=== PATIENT | male | born 1965 | race Caucasian/White ===

== ENCOUNTER 2017-07-23 11:58 | Inpatient (IN) | payer OTHER ==
[~2017-07-23] VITALS: Ht 162.6 cm; Wt 116.8 kg
[2017-07-23 13:17] LABS: BASO % 0.1 %; BASO ABS # 0.01 K/uL (0-0.2); COMPLETE YES; EOS % 0.1 %; HEMATOCRIT 37.2 % (42-52); IG% 0.3 %; LYMPH % 6.8 %; LYMPH ABS # 0.83 K/uL (1.2-3.4); MEAN CELL VOLUME 87.3 fL (80-100); MEAN CORPUSCULAR HEMOGLOBIN 30.5 pg (25-34); MEAN CORPUSCULAR HGB CONC 34.9 g/dl (32-36); MEAN PLATELET VOLUME 9.7 fL (7.4-10.4); MONO % 6.8 %; NEUT % 85.9 %; PLATELET COUNT 125 K/uL (130-400); RED BLOOD COUNT 4.26 M/uL (4.7-6.1); WHITE BLOOD COUNT 12.15 K/uL (4.8-10.8)
[2017-07-23 13:26] LABS: BUN/CREATININE RATIO 12.6 (10-20); POTASSIUM 3.8 mmol/L (3.5-5.1)
[2017-07-23 13:34] LABS: C-REACTIVE PROTEIN 22.7 mg/dl (0-0.29)
--- NOTE | 2017-07-23 13:36 | DIAGNOSTIC IMAGING REPORT ---
LEFT TIBIA/FIBULAR 2 VIEWS HISTORY: L leg pain, erythema, fever COMPARISON: None. FINDINGS: There is no fracture or dislocation. Small ossific density adjacent to the lateral malleolus is consistent with an old avulsion injury. Mild soft tissue swelling throughout the lower leg. No radiopaque foreign bodies. IMPRESSION: Mild soft tissue swelling throughout the lower leg. No underlying bony abnormality. Electronically signed by: Zachary Talavera M.D. 07/23/2017 1:34 PM Dictated Date/Time: 07/23/2017 1:18 PM
[2017-07-23] MEDS ORDERED: VANCOMYCIN 1GM/270ML NSS IV STA (14:15)
[2017-07-23] MEDS ORDERED: SODIUM CHLORIDE 0.9% 1000ML 1,000 ML IV STA (14:15)
[2017-07-23 14:16] LABS: LYME DISEASE AB IGG NEG (NEG); LYME DISEASE AB IGM NEG (NEG)
--- NOTE | 2017-07-23 14:55 | DIAGNOSTIC IMAGING REPORT ---
ULTRASOUND LEFT VENOUS DOPP LOWER EXT UNILAT CLINICAL HISTORY: Left leg swelling and erythema. COMPARISON STUDY: No previous studies for comparison. FINDINGS: Real-time and color flow Doppler imaging were performed. Flow was seen within the femoral, popliteal and calf veins with no intraluminal thrombus demonstrated. The saphenous vein is patent. There are multiple prominent left inguinal lymph nodes the largest of which measures 30 x 24 x 18 mm IMPRESSION: 1. No evidence of left lower extremity DVT 2. Prominent left inguinal lymph nodes, likely reactive. Clinical follow-up is advocated Electronically signed by: Austin Aranda M.D. 07/23/2017 2:54 PM Dictated Date/Time: 07/23/2017 2:53 PM
[2017-07-23] MEDS ORDERED: GLUCOSE 40% GEL 15 GM TUBE PO PRN (15:00)
[2017-07-23] MEDS ORDERED: MAGNESIUM HYDROXIDE SUSP 30 ML UDC PO PRN (15:00)
[2017-07-23] MEDS ORDERED: ACETAMINOPHEN 325 MG TAB PO PRN (15:00)
[2017-07-23] MEDS ORDERED: POLYETHYLENE (MIRALAX) 17 GM PACK PO PRN (15:00)
[2017-07-23] MEDS ORDERED: GLUCOSE 10 TABS/TUBE PO PRN (15:00)
[2017-07-23] MEDS ORDERED: DEXTROSE 50% 50 ML SYR IV PRN (15:00)
[2017-07-23] MEDS ORDERED: GLUCAGON FOR INJ 1 MG VIAL SQ PRN (15:00)
[2017-07-23] MEDS ORDERED: ALUMINUM/MAGNESIUM/SIMETH (MAALOX MAX) 30 ML UDC PO PRN (15:00)
[2017-07-23] MEDS ORDERED: ONDANSETRON INJ 2 MG/ML 2 ML VIAL IV PRN (15:00)
[2017-07-23 15:12] VITALS: BP 136/88; PULSE 74; TEMP 37.4; O2SAT 98; BMI 44.2
--- NOTE | 2017-07-23 15:15 | EMERGENCY ROOM VISIT NOTE ---
History First contact with patient: 12:38 Chief Complaint: INFECTION Stated Complaint: CELLULITIS, VERY SORE, INFLAMMED LEG Nursing Triage Summary: pt has redness in left lower leg notice sunday. thinks cellulitis. has been on long distance travel from [place] on sunday History of Present Illness The patient is a 52 year old male who presents to the Emergency Room with complaints of left leg swelling, redness and fever. The patient reports that he was in [place] last week for a conference. When he was returning Sunday evening, he reports sudden onset of chills, nausea and vomiting. The patient reports that he did notice some mild left leg discomfort on Sunday, but did not really look at the leg until Sunday when his noticed that the leg was red. The patient denies any blunt trauma to the leg. He denies any recent tick bites or history of Lyme disease. The patient denies any prior history of vasculitis, cellulitis or lower extremity wounds. Patient denies any new topical products or risk of poison kendy exposure. The patient reports that his fever last night was 102.8F. He was seen at [facility] and referred here for further evaluation. The patient has not taken any medicine for pain or fever, and rates his discomfort a 5 out of 10. The patient reports that the swelling, redness and pain is worsening, now having discomfort in his left thigh as well. The patient denies any prior history of diabetes. Review of Systems HEENT: Denies dizziness, visual problems, hearing loss, tinnitus. Denies difficulty swallowing or oral lesions. PULMONARY: Denies cough, shortness of breath, sputum production or hemoptysis. CARDIOVASCULAR: Denies chest pain, palpitations, dyspnea on exertion, orthopnea or peripheral edema. GASTROINTESTINAL: Denies diarrhea, constipation, nausea, vomiting, or abdominal pain. GENITOURINARY: Denies dysuria, frequency, urgency or nocturia. NEUROLOGIC: Denies history of epilepsy, CVA, TIA or chronic headaches. MUSCULOSKELETAL: Denies history of joint tenderness/swelling. SKIN: Denies rashes or lesions. PSYCHIATRIC: Denies history of depression or mental illness. ENDOCRINE: Denies history of diabetes or thyroid disorders. Past Medical/Surgical History Medical Problems: (1) Bronchitis (2) Cellulitis of left leg (3) Pneumonia Surgical Problems: (1) No history of previous surgery Family History FH: cancer FH: diabetes mellitus FH: hypertension FH: kidney disease Social History Smoking Status: Never Smoker Smokeless Tobacco Use: Yes Alcohol Use: none Marital Status: Housing Status: lives with family Occupation Status: unemployed Current/Historical Medications No Active Prescriptions or Reported Meds Physical Exam Vital Signs Date Time Temp Pulse Resp B/P (MAP) Pulse Ox O2 Delivery O2 Flow Rate FiO2 07/23/17 14:59 96 18 136/88 94 Room Air 07/23/17 13:43 92 22 133/89 94 Room Air 07/23/17 12:00 37.4 99 18 178/111 94 Physical Exam CONSTITUTIONAL: Healthy and well nourished. Alert and oriented X 3 with positive affect. She does not appear acutely ill or toxic. HEENT: Normocephalic, atraumatic. Pupils equal, round and reactive. No scleral icterus or conjunctival injection/pallor. NECK: Full active range of motion without discomfort. RESPIRATORY: Clear to auscultation bilaterally with no wheezing, crackles, rhonchi or stridor. CARDIOVASCULAR: Regular rate and rhythm with no murmurs, rubs or gallops. GASTROINTESTINAL: Bowel sounds present in all quadrants. Soft and nontender to palpation. MUSCULOSKELETAL: Examination of the left leg shows notable erythema and edema. The erythema appears patchy and is raised. No vesicles, pustules or desquamation. It is noted that the erythema is sharply demarcated where the patient's sock crosses the ankle region. The erythema does slightly sahra with pressure. He has some erythema extending onto the anterior and medial thigh region. Negative logroll. LYMPHATICS: No left inguinal adenopathy noted. INTEGUMENTARY: No rash or other significant dermatologic conditions noted. NEUROLOGIC: No focal neurologic deficits noted. Left foot and toes are sensory intact. Medical Decision & Procedures ER Provider Diagnostic Interpretation: My interpretation of left leg x-rays does not show any radiopaque foreign bodies , fractures or evidence for osteomyelitis. Radiologist report is as follows: LEFT TIBIA/FIBULAR 2 VIEWS HISTORY: L leg pain, erythema, fever COMPARISON: None. FINDINGS: There is no fracture or dislocation. Small ossific density adjacent to the lateral malleolus is consistent with an old avulsion injury. Mild soft tissue swelling throughout the lower leg. No radiopaque foreign bodies. IMPRESSION: Mild soft tissue swelling throughout the lower leg. No underlying bony abnormality. Venous ultrasound of the left lower extremity does not show any underlying deep vein thrombosis. Left inguinal lymphadenopathy is noted. Radiologist report is as follows: ULTRASOUND LEFT VENOUS DOPP LOWER EXT UNILAT CLINICAL HISTORY: Left leg swelling and erythema. COMPARISON STUDY: No previous studies for comparison. FINDINGS: Real-time and color flow Doppler imaging were performed. Flow was seen within the femoral, popliteal and calf veins with no intraluminal thrombus demonstrated. The saphenous vein is patent. There are multiple prominent left inguinal lymph nodes the largest of which measures 30 x 24 x 18 mm IMPRESSION: 1. No evidence of left lower extremity DVT 2. Prominent left inguinal lymph nodes, likely reactive. Clinical follow-up is advocated Laboratory Results 07/23/17 12:50 Red Blood Count 4.26, Mean Corpuscular Volume 87.3, Mean Corpuscular Hemoglobin 30.5, Mean Corpuscular Hemoglobin Concent 34.9, Mean Platelet Volume 9.7, Neutrophils (%) (Auto) 85.9, Lymphocytes (%) (Auto) 6.8, Monocytes (%) (Auto) 6.8, Eosinophils (%) (Auto) 0.1, Basophils (%) (Auto) 0.1, Neutrophils # (Auto) 10.43, Lymphocytes # (Auto) 0.83, Monocytes # (Auto) 0.83, Eosinophils # (Auto) 0.01, Basophils # (Auto) 0.01 07/23/17 12:50 Test 07/23/17 12:50 07/23/17 13:48 07/23/17 14:57 White Blood Count 12.15 K/uL (4.8-10.8) Red Blood Count 4.26 M/uL (4.7-6.1) Hemoglobin 13.0 g/dL (14.0-18.0) Hematocrit 37.2 % (42-52) Mean Corpuscular Volume 87.3 fL (80-100) Mean Corpuscular Hemoglobin 30.5 pg (25-34) Mean Corpuscular Hemoglobin Concent 34.9 g/dl (32-36) Platelet Count 125 K/uL (130-400) Mean Platelet Volume 9.7 fL (7.4-10.4) Neutrophils (%) (Auto) 85.9 % Lymphocytes (%) (Auto) 6.8 % Monocytes (%) (Auto) 6.8 % Eosinophils (%) (Auto) 0.1 % Basophils (%) (Auto) 0.1 % Neutrophils # (Auto) 10.43 K/uL (1.4-6.5) Lymphocytes # (Auto) 0.83 K/uL (1.2-3.4) Monocytes # (Auto) 0.83 K/uL (0.11-0.59) Eosinophils # (Auto) 0.01 K/uL (0-0.5) Basophils # (Auto) 0.01 K/uL (0-0.2) RDW Standard Deviation 43.5 fL (36.4-46.3) RDW Coefficient of Variation 13.7 % (11.5-14.5) Immature Granulocyte % (Auto) 0.3 % Immature Granulocyte # (Auto) 0.04 K/uL (0.00-0.02) Erythrocyte Sedimentation Rate 30 mm/hr (0-14) Anion Gap 7.0 mmol/L (3-11) Est Creatinine Clear Calc Drug Dose 99.4 ml/min Estimated GFR () 99.2 Estimated GFR (Non- 85.5 BUN/Creatinine Ratio 12.6 (10-20) Calcium Level 9.0 mg/dl (8.5-10.1) C-Reactive Protein 22.70 mg/dl (0-0.29) Lyme Disease IgG Antibody NEG (NEG) Lyme Disease IgM Antibody NEG (NEG) Bedside Lactic Acid Venous 1.65 mmol/L (0.90-1.70) The above labs were reviewed. Blood cultures 2 were collected and are pending. Bedside lactic acid was mild elevated at 1.65. CBC is elevated with left shift and bandemia. Lyme screen is negative. Glucose is elevated at 277. Renal function is normal. Medications Administered Medications (Trade) Dose Ordered Sig/Mario Route Start Time Stop Time Status Last Admin Dose Admin Sodium Chloride 1,000 ml @ 999 mls/hr Q1H1M STAT IV 07/23/17 14:15 07/23/17 15:15 07/23/17 14:17 999 MLS/HR Vancomycin HCl (Vancomycin 1gm/ 270ml Nss) 1 gm NOW STAT IV 07/23/17 14:15 07/23/17 14:16 DC 07/23/17 14:58 1 GM ED Course Patient history and physical exam were performed. Nurse's notes were reviewed. Vital signs were reviewed, showing an elevated blood pressure 178/111. The patient is currently afebrile with a temperature of 37.4C. Pulse rate is 99. I also reviewed documentation from [facility], showing that the patient had a tympanic temperature of 101F 1 evaluation. He was also tachycardic at 101 bpm, and normotensive. IV access was established. Blood cultures 2 were ordered. Review of labs shows a leukocytosis with left shift and bandemia. Random glucose is also elevated. Remaining electrolytes are normal. Lyme screen is negative. X-rays of the left leg were normal. Venous ultrasound of the left lower extremity was negative for deep vein thrombosis. Left inguinal adenopathy is noted. The patient was hydrated with a liter normal saline, and was administered vancomycin 1 g IV infusion. The case was further discussed with Dr. Loo, ED attending physician, who also evaluated the patient and agreed that hospice evaluation was warranted given progressively worsening infection and fever. The case was further discussed with Dr. Tolliver, [facility] hospitalist. Please see his dictation for further treatment and final disposition. Medical Decision Patient presents with clinical examination and laboratory findings suggestive of acute left lower extremity cellulitis. The patient was febrile at [facility]. He was afebrile in the emergency department. Laboratory studies does show a leukocytosis with left shift and bandemia. His lactate is also slightly elevated. The patient denies any other contact irritants. I do not suspect a vasculitis, however it is curious that the lower margin of erythema is sharply demarcated with his sock. Medication Reconcilliation Current Medication List: was personally reviewed by me Blood Pressure Screening Patient's blood pressure: Elevated blood pressure Impression Primary Impression: Cellulitis of left lower extremity Additional Impressions: Elevated glucose level Elevated blood pressure reading Departure Information Prescriptions No Active Prescriptions or Reported Meds Referrals No Doctor, Assigned (PCP) Patient Instructions My [facility] Health Problem Qualifiers
--- NOTE | 2017-07-23 15:18 | History and Physical ---
History & Physical Date & Time of Service: Jul 23, 2017 at 15:11 Chief Complaint: Cellulitis, Very Sore, Inflammed Leg Primary Care Physician: No Doctor, Assigned History of Present Illness Source: patient Mr. Munguia is a 52 y/o male with an unremarkable PMHx who presents for LLE erythema and fever since Sunday. Patient was recently in [place] and traveled home on Sunday. Sunday night he developed sudden onset of fever/ chills and nausea/vomiting. He reports 4 episodes of emesis at that time but nothing since. He initially noted mild edema and pain on Sunday and only minimal erythema. Today, he noticed significant erythema and pain of the LLE extending from the ankle to the medial thigh. He reports pain of the LLE with palpation and ambulation. Associated malaise and fatigue. He reports that he has had nothing like this before or history of chronic edema. He denies any trauma/lacerations, wounds, or known insect bites. He denies history of DVT. He noted a fever last night of 102.8 F. He initially presented to an urgent care center which noted a temperature of 101 F. In the ED, patient noted to be afebrile with a mild leukocytosis of 12.15. ESR 30 and CRP 22.7. Platelets 125. Lactic acid 1.65. Lower extremity ultrasound negative for DVT. He was initiated on vancomycin. He will be admitted to medical for further evaluation and care. Past Medical/Surgical History No PMHx Family History FH: cancer FH: diabetes mellitus FH: hypertension FH: kidney disease Social History Smoking Status: Never Smoker Smokeless Tobacco Use: No Alcohol Use: none Drug Use: none Marital Status: Housing status: lives with family Immunizations History of Influenza Vaccine: Unknown History of Tetanus Vaccine?: Unknown History of Pneumococcal: Unknown History of Hepatitis B Vaccine: Unknown Multi-Drug Resistant Organisms History of MDRO: No Allergies Coded Allergies: No Known Allergies (Unverified , 07/23/17) Home Medications Scheduled Ceftriaxone Sod (Rocephin), 2 GM IV DAILY Cephalexin Monohydrate (Keflex), 500 MG PO QID Doxycycline Hyclate (Doxycycline Hyclate), 1 TAB PO BID Glipizide (Glipizide), 5 MG PO QAM Ketoconazole (Ketoconazole), 1 APPLN EXT BID Lisinopril (Zestril), 10 MG PO QAM Metformin HCl (Metformin HCl), 1,000 MG PO BIDM Review of Systems Constitutional: + fever, + chills, + fatigue Eyes: No worsening of vision ENT: No nasal symptoms, No sore throat Respiratory: No cough, No sputum, No wheezing, No shortness of breath Cardiovascular: No chest pain Abdomen: + nausea, + vomiting, No pain, No diarrhea, No constipation Musculoskeletal: + swelling (LLE) Genitourinary - Male: No dysuria Neurologic: No numbness/tingling Hematologic / Lymphatic: No abnormal bleeding/bruising, No clotting problems Integumentary: + new/changing skin lesions (erythema of LLE) Physical Exam Vital Signs Date Time Temp Pulse Resp B/P (MAP) Pulse Ox O2 Delivery O2 Flow Rate FiO2 07/23/17 13:43 92 22 133/89 94 Room Air 07/23/17 12:00 37.4 99 18 178/111 94 General Appearance: WD/WN, no apparent distress Head: normocephalic, atraumatic Eyes: sclerae normal ENT: hearing grossly normal Neck: supple, no JVD, trachea midline Respiratory/Chest: lungs clear, normal breath sounds, no respiratory distress, no accessory muscle use Cardiovascular: regular rate, rhythm, no gallop, no murmur Abdomen/GI: normal bowel sounds, non tender, soft Extremities/Musculoskelatal: normal capillary refill, + pertinent finding (LLE with erythema largely of anterior surface of kramer with petechial-like blotching ; mild erythema extends up medial thigh but no distinct streaking; L foot dry without obvious open wound; kramer with mild blistering and minimal clear drainage ; pedal pulses 2+) Neurologic/Psych: alert, oriented x 3 Diagnostics Laboratory Results Results Past 24 Hours Test 07/23/17 12:50 07/23/17 13:48 Range/Units White Blood Count 12.15 4.8-10.8 K/uL Red Blood Count 4.26 4.7-6.1 M/uL Hemoglobin 13.0 14.0-18.0 g/dL Hematocrit 37.2 42-52 % Mean Corpuscular Volume 87.3 80-100 fL Mean Corpuscular Hemoglobin 30.5 25-34 pg Mean Corpuscular Hemoglobin Concent 34.9 32-36 g/dl Platelet Count 125 130-400 K/uL Mean Platelet Volume 9.7 7.4-10.4 fL Neutrophils (%) (Auto) 85.9 % Lymphocytes (%) (Auto) 6.8 % Monocytes (%) (Auto) 6.8 % Eosinophils (%) (Auto) 0.1 % Basophils (%) (Auto) 0.1 % Neutrophils # (Auto) 10.43 1.4-6.5 K/uL Lymphocytes # (Auto) 0.83 1.2-3.4 K/uL Monocytes # (Auto) 0.83 0.11-0.59 K/uL Eosinophils # (Auto) 0.01 0-0.5 K/uL Basophils # (Auto) 0.01 0-0.2 K/uL RDW Standard Deviation 43.5 36.4-46.3 fL RDW Coefficient of Variation 13.7 11.5-14.5 % Immature Granulocyte % (Auto) 0.3 % Immature Granulocyte # (Auto) 0.04 0.00-0.02 K/uL Erythrocyte Sedimentation Rate 30 0-14 mm/hr Sodium Level 132 136-145 mmol/L Potassium Level 3.8 3.5-5.1 mmol/L Chloride Level 97 98-107 mmol/L Carbon Dioxide Level 28 21-32 mmol/L Anion Gap 7.0 3-11 mmol/L Blood Urea Nitrogen 13 7-18 mg/dl Creatinine 1.00 0.60-1.40 mg/dl Est Creatinine Clear Calc Drug Dose 99.4 ml/min Estimated GFR () 99.2 Estimated GFR (Non- 85.5 BUN/Creatinine Ratio 12.6 10-20 Random Glucose 277 70-99 mg/dl Calcium Level 9.0 8.5-10.1 mg/dl C-Reactive Protein 22.70 0-0.29 mg/dl Lyme Disease IgG Antibody NEG NEG Lyme Disease IgM Antibody NEG NEG Bedside Lactic Acid Venous 1.65 0.90-1.70 mmol/L Microbiology Results 07/23/17 Blood Culture, Received Pending 07/23/17 Blood Culture, Received Pending Diagnostic Radiology ULTRASOUND LEFT VENOUS DOPP LOWER EXT UNILAT FINDINGS: Real-time and color flow Doppler imaging were performed. Flow was seen within the femoral, popliteal and calf veins with no intraluminal thrombus demonstrated. The saphenous vein is patent. There are multiple prominent left inguinal lymph nodes the largest of which measures 30 x 24 x 18 mm IMPRESSION: 1. No evidence of left lower extremity DVT 2. Prominent left inguinal lymph nodes, likely reactive. Clinical follow-up is advocated LEFT TIBIA/FIBULAR 2 VIEWS FINDINGS: There is no fracture or dislocation. Small ossific density adjacent to the lateral malleolus is consistent with an old avulsion injury. Mild soft tissue swelling throughout the lower leg. No radiopaque foreign bodies. IMPRESSION: Mild soft tissue swelling throughout the lower leg. No underlying bony abnormality. Impression Assessment and Plan Mr. Munguia is a 52 y/o male with an unremarkable PMHx who presents for LLE erythema and fever since Sunday. LLE Cellulitis: - Cellulitis largely of anterior kramer that has some petechial-like areas; mildly erythematous patches extending up medial thigh without overt streaking - Ceftriaxone 1 g IV daily and Vancomycin - NSS 100 mL/hr Hyperglycemia: - Obtain A1c and fasting lipid panel - Cover with SSI at this time Mild Thrombocytopenia: - Mildy low at 125 but erythema has a petechial/purpuric appearance - monitor platelets DVT Prophylaxis: SCDs; no chemical prophylaxis at this time pending monitoring of platelets Code Status: FULL RESUSCITATION Disposition: Radiographer - PCP Attending Addendum: I have physically seen and examined this patient, have directed the physician assistants medical activities, and agree with the H&P as noted above with the following exceptions as noted. The patient presents to the emergency department with "redness and temperature, fevers and chills with nausea and vomiting. The patient denies chest pain, palpitations, shortness of breath, cough, sore throat, sweats, diarrhea or constipation, abdominal pain, pelvic pain, blood in urine or stool, dysuria, urinary frequency or urgency, lightheadedness, dizziness, headache, memory loss, rash, abnormal bruising or bleeding, imbalance , focal or generalized weakness, numbness or tingling in arms or legs, generalized arthralgias or myalgias, back or neck pain, night sweats. The review of systems is otherwise negative other than for that already noted above, and at least 10 systems have been reviewed. The patient is awake, well-developed and adequately nourished, alert and oriented 3, normocephalic and atraumatic, lying in bed and in no acute distress. HEENT--PERRL, EOMI, mucous membranes and oropharynx dry. Neck--supple, no JVD or bruits, thyroid normal, trachea midline, no adenopathy. Heart--normal S1 and S2, no extra beats, no murmurs, rubs or gallops. Lungs--clear bilaterally with good air movement, no respiratory distress, no accessory muscle use. Abdomen--normal bowel sounds and soft, nontender and nondistended, no hernias or masses, no organomegaly. Extremities/dermatologic--left lower extremity with erythema anterior tibial surface with petechia and ecchymoses extending up medial thigh. There is mild blistering and spotty clear drainage. Neurologic--cranial nerves II through XII grossly intact, motor and sensory examination normal. Rheumatologic--normal range of motion, nontender, muscles and joints. Psychiatric--normal affect. Assessment and Plan: 1. Left lower extremity cellulitis-- Placed on vancomycin IV and ceftriaxone 1 g IV daily. Normal saline 100 mils per hour. Mild thrombocytopenia likely contributing to petechial and purpuric appearance. Monitor CBC with differential daily, avoid antiplatelet agents. Level of Care Med/Surg Advanced Directives Existing Advance Directive: No Existing Living Will: No Existing Power of Lard Tub Washer: No Resuscitation Status FULL RESUSCITATION VTE Prophylaxis VTE Risk Assessment Done? Y/N: Yes Risk Level: Moderate Given or contraindicated: SCD's Social Service Consult None Apply
[2017-07-23] MEDS ORDERED: MoRPHine SULFATE 2 MG/ML CARP IV PRN (15:30)
[2017-07-23 16:55] VITALS: BP 155/94; PULSE 97; TEMP 37.9; O2SAT 94
[2017-07-23] MEDS ORDERED: VANCOMYCIN INJ 2,000 MG in SODIUM CHLORIDE 0.9% 500ML 500 ML IV ONE (17:15)
[2017-07-23] MEDS ORDERED: VANCOMYCIN CONSULT ACTIVE PRN (17:15)
[2017-07-23] MEDS: SODIUM CHLORIDE 0.9% 1000ML 1,000 ML IV SCH (17:29)
[2017-07-23] MEDS: CEFTRIAXONE SOD INJ 1 GM in DEXTROSE 5% ADD-VANTAGE 50ML 50 ML IV SCH (17:30)
[2017-07-23 19:19] VITALS: TEMP 38
[2017-07-23] MEDS: INSULIN ASPART 100 UNITS/ML 3 ML PEN SC SCH (21:20)
--- NOTE | 2017-07-23 22:04 | Pharmacy Progress Note ---
Pharmacy Abx Initial Consult Date of Service Jul 23, 2017. Pharmacy Dosing Scope Date of Consult: 07/23/17 Consultation requested by: Karol Meade PA-C Pharmacy is consulted to initiate vancomycin IV dosing therapy, order appropriate labs and adjust drug dose/frequency. Subjective The patient is a 52 year old male admitted on Jul 23, 2017 at 15:11. Objective Height (Feet): 5 Height (Inches): 4.00 Weight (Kilograms): 116.800 Vital Signs (Past 12Hrs) Vital Signs Past 12 Hours Date Time Temp Pulse Resp B/P (MAP) Pulse Ox O2 Delivery O2 Flow Rate FiO2 07/23/17 19:19 38.0 07/23/17 16:55 37.9 97 20 155/94 (114) 94 Room Air 07/23/17 16:33 98 20 137/83 94 07/23/17 15:12 37.4 74 18 136/88 98 Room Air 07/23/17 14:59 96 18 136/88 94 Room Air 07/23/17 13:43 92 22 133/89 94 Room Air 07/23/17 12:00 37.4 99 18 178/111 94 Lab Results (24Hrs) Laboratory Tests (24 Hours) Test 07/23/17 12:50 C-Reactive Protein 22.70 mg/dl (0-0.29) H Erythrocyte Sedimentation Rate 30 mm/hr (0-14) H White Blood Count 12.15 K/uL (4.8-10.8) H Red Blood Count 4.26 M/uL (4.7-6.1) L Hemoglobin 13.0 g/dL (14.0-18.0) L Hematocrit 37.2 % (42-52) L Mean Corpuscular Volume 87.3 fL (80-100) Mean Corpuscular Hemoglobin 30.5 pg (25-34) Mean Corpuscular Hemoglobin Concent 34.9 g/dl (32-36) Platelet Count 125 K/uL (130-400) L Mean Platelet Volume 9.7 fL (7.4-10.4) Neutrophils (%) (Auto) 85.9 % Lymphocytes (%) (Auto) 6.8 % Monocytes (%) (Auto) 6.8 % Eosinophils (%) (Auto) 0.1 % Basophils (%) (Auto) 0.1 % Neutrophils # (Auto) 10.43 K/uL (1.4-6.5) H Lymphocytes # (Auto) 0.83 K/uL (1.2-3.4) L Monocytes # (Auto) 0.83 K/uL (0.11-0.59) H Eosinophils # (Auto) 0.01 K/uL (0-0.5) Basophils # (Auto) 0.01 K/uL (0-0.2) Micro Results Date/Time Source Procedure Growth Status 07/23/17 12:50 Blood Blood Culture Pending Received 07/23/17 12:45 Blood Blood Culture Pending Received Risk Factors for Resistance * no significant PMH Assessment & Plan Assessment 52 year old male with no significant history who is admitted with LLE cellulitis. He has a recent history of travel to [place]. Plan vancomycin for treatment of cellulitis Vancomycin IV * Loading dose: 3000 mg (25 mg/kg- given as two separate doses) * Maintenance dose: 1500 mg IV (13 mg/kg) every 8 hours (population pharmacokinetics suggest a half-life of 7.9 hr) * Goal trough level for cellulitis : 10 to 15 mcg/mL (higher for MRSA) * Trough ordered for 07/25/17 prior to 1000 dose * A less than traditional dose has been selected due to likelihood of drug accumulation in obese patient. Pharmacy will continue to follow and will adjust dose/frequency as necessary. Thank you.
[2017-07-23 23:21] VITALS: BP 138/87; PULSE 87; TEMP 37; O2SAT 97
[2017-07-24] MEDS: SODIUM CHLORIDE 0.9% 1000ML 1,000 ML IV SCH ×3 (01:08→22:06)
[2017-07-24] MEDS: VANCOMYCIN INJ 1,500 MG in SODIUM CHLORIDE 0.9% 500ML 500 ML IV SCH ×3 (01:43→17:30)
[2017-07-24 06:09] LABS: ESTIMATED AVERAGE GLUCOSE 209 mg/dl; HA1C FLAG Normal (Normal)
[2017-07-24 06:26] LABS: HEMATOCRIT 33.6 % (42-52); MEAN CELL VOLUME 88.4 fL (80-100); MEAN CORPUSCULAR HEMOGLOBIN 30.3 pg (25-34); MEAN CORPUSCULAR HGB CONC 34.2 g/dl (32-36); MEAN PLATELET VOLUME 9.8 fL (7.4-10.4); PLATELET COUNT 107 K/uL (130-400); WHITE BLOOD COUNT 7.89 K/uL (4.8-10.8)
[2017-07-24 06:50] LABS: BUN/CREATININE RATIO 16.4 (10-20); CALCIUM 8.7 mg/dl (8.5-10.1); CREATININE 0.72 mg/dl (0.60-1.40); POTASSIUM 3.8 mmol/L (3.5-5.1)
[2017-07-24 06:53] LABS: CHOLESTEROL/HDL RATIO 5.2
[2017-07-24 07:54] VITALS: BP 137/88; PULSE 83; TEMP 37.1; O2SAT 96
[2017-07-24] MEDS: INSULIN ASPART 100 UNITS/ML 3 ML PEN SC SCH ×4 (08:05→22:08)
[2017-07-24 14:05] VITALS: BMI 44.2
[2017-07-24 16:04] VITALS: BP 155/96; PULSE 83; TEMP 37.2; O2SAT 98
[2017-07-24] MEDS: CEFTRIAXONE SOD INJ 1 GM in DEXTROSE 5% ADD-VANTAGE 50ML 50 ML IV SCH (16:38)
--- NOTE | 2017-07-24 19:22 | Progress Note ---
Subjective Date of Service: Jul 24, 2017. Subjective Pt evaluation today including: conversation w/ patient, conversation w/ family , physical exam, chart review, lab review, review of studies, conversation w/ digital marketing consultant Problem List Medical Problems: (1) Cellulitis of left lower extremity Status: Acute (2) Elevated blood pressure reading Status: Acute (3) Elevated glucose level Status: Acute Review of Systems Constitutional: + fever, No see HPI, No chills, No sweats, No weight loss, No weakness, No fatigue, No problem reported Eyes: No see HPI, No worsening of vision, No eye pain, No redness, No discharge , No diplopia, No problem reported ENT: No see HPI, No hearing loss, No unusual epistaxis, No nasal symptoms, No sore throat, No tinnitus, No dental problems, No trouble swallowing, No problem reported Respiratory: No see HPI, No cough, No sputum, No wheezing, No shortness of breath, No dyspnea on exertion, No dyspnea at rest, No hemoptysis, No problem reported Cardiac: No see HPI, No chest pain, No orthopnea, No PND, No edema, No claudication, No palpitations, No problem reported Abdomen: No see HPI, No pain, No nausea, No vomiting, No diarrhea, No constipation, No GI bleeding, No problem reported Musculoskeletal: + muscle pain, + swelling, + calf pain, No see HPI, No joint pain, No problem reported Male : No see HPI, No dysuria, No urinary frequency, No incontinence, No nocturia more than once/night, No slowing stream, No hematuria, No sexual dysfunction, No problem reported Neurologic: No see HPI, No memory loss, No paralysis, No weakness, No numbness/ tingling, No vertigo, No balance problems, No problem reported Psychiatric: No see HPI, No depression symptoms, No anhedonism, No anxiety, No insomnia, No substance abuse, No problem reported Heme: No see HPI, No abnormal bleeding/bruising, No clotting problems, No swollen lymph nodes, No night sweats, No problem reported Endo: No see HPI, No fatigue, No excessive thirst, No excessive urination, No problem reported Skin: + color change, No see HPI, No rash, No itch, No new/changing skin lesions, No bleeding, No problem reported Objective Vital Signs Date Time Temp Pulse Resp B/P (MAP) Pulse Ox O2 Delivery O2 Flow Rate FiO2 07/24/17 16:04 37.2 83 18 155/96 (115) 98 Room Air 07/24/17 16:00 Room Air 07/24/17 09:01 Room Air 07/24/17 07:54 37.1 83 22 137/88 (104) 96 Room Air 07/24/17 00:05 Room Air 07/23/17 23:21 37.0 87 18 138/87 (104) 97 Room Air 07/23/17 19:19 38.0 Physical Exam General Appearance: WD/WN, no apparent distress Eyes: normal inspection, EOMI ENT: normal ENT inspection, hearing grossly normal Neck: supple, no adenopathy, thyroid normal Respiratory/Chest: chest non-tender, lungs clear, normal breath sounds, no respiratory distress, no accessory muscle use Cardiovascular: regular rate, rhythm, no edema, no gallop, no JVD, no murmur Abdomen: normal bowel sounds, non tender, soft, no organomegaly, no pulsatile mass Extremities: normal range of motion, normal inspection, + calf tenderness, + inflammation (left lower extremity large bright red.) 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, no motor/sensory deficits, alert, normal mood/affect, oriented x 3 Skin: normal color, warm/dry, no rash Laboratory Results Last 24 Hours Test 07/23/17 19:57 07/24/17 05:57 07/24/17 07:48 07/24/17 11:33 Bedside Glucose 237 mg/dl 206 mg/dl 216 mg/dl White Blood Count 7.89 K/uL Red Blood Count 3.80 M/uL Hemoglobin 11.5 g/dL Hematocrit 33.6 % Mean Corpuscular Volume 88.4 fL Mean Corpuscular Hemoglobin 30.3 pg Mean Corpuscular Hemoglobin Concent 34.2 g/dl RDW Standard Deviation 45.3 fL RDW Coefficient of Variation 13.8 % Platelet Count 107 K/uL Mean Platelet Volume 9.8 fL Sodium Level 136 mmol/L Potassium Level 3.8 mmol/L Chloride Level 103 mmol/L Carbon Dioxide Level 27 mmol/L Anion Gap 6.0 mmol/L Blood Urea Nitrogen 12 mg/dl Creatinine 0.72 mg/dl Est Creatinine Clear Calc Drug Dose 138.1 ml/min Estimated GFR () 123.4 Estimated GFR (Non- 106.5 BUN/Creatinine Ratio 16.4 Random Glucose 231 mg/dl Calcium Level 8.7 mg/dl Triglycerides Level 202 mg/dl Cholesterol Level 140 mg/dl HDL Cholesterol 27 mg/dl LDL Cholesterol, Calculated 73 mg/dl VLDL Cholesterol, Calculated 40 mg/dl Cholesterol/HDL Ratio 5.2 Test 07/24/17 16:26 Bedside Glucose 202 mg/dl Assessment and Plan 52-year-old man with no significant past medical history was struggling interested when he presented with left lower extremity redness pain swelling and fever. Left lower extremity cellulitis The bright red color suggestive of strep cellulitis, with increased ceftriaxone 2 g daily Continue vancomycin Add Lactinex Tinea pedis Ketoconazole between toes for 8 weeks New onset/newly diagnosed diabetes mellitus with hemoglobin A1c 8.7 Start patient on sliding scale Start patient on metformin/glipizide, will do oral trial prior to going to insulin Morbid obesity with BMI of 44.2 Patient was consulted to lose weight Clinically suspected obstructive sleep apnea with witnessed episodes of apnea during sleep by his . Indicated about sleep apnea and instructed to get sleep study as an outpatient. Heparin for DVT prophylaxis
[2017-07-24] MEDS ORDERED: CEFTRIAXONE SOD INJ 1 GM in DEXTROSE 5% ADD-VANTAGE 50ML 50 ML IV ONE (20:00)
[2017-07-24 20:46] LABS: INR 0.9 (0.9-1.1); PROTHROMBIN TIME (PATIENT) 10.1 SECONDS (9.0-12.0)
[2017-07-24] MEDS: HEPARIN SOD 5000 UNIT/0.5 ML CARP SQ SCH (22:00)
[2017-07-24] MEDS: KETOCONAZOLE 2% CR 15 GM TUBE EXT SCH (22:05)
[2017-07-25 00:31] VITALS: BP 148/93; PULSE 80; TEMP 37; O2SAT 96
[2017-07-25] MEDS: VANCOMYCIN INJ 1,500 MG in SODIUM CHLORIDE 0.9% 500ML 500 ML IV SCH ×2 (01:30→11:19)
[2017-07-25] MEDS: HEPARIN SOD 5000 UNIT/0.5 ML CARP SQ SCH ×2 (05:50→14:38)
[2017-07-25] MEDS ORDERED: METFORMIN HCL 500 MG TAB PO SCH (08:00)
[2017-07-25] MEDS: SODIUM CHLORIDE 0.9% 1000ML 1,000 ML IV SCH (08:11)
[2017-07-25] MEDS: KETOCONAZOLE 2% CR 15 GM TUBE EXT SCH (08:24)
[2017-07-25 08:30] VITALS: O2SAT 96
[2017-07-25] MEDS: INSULIN ASPART 100 UNITS/ML 3 ML PEN SC SCH ×2 (08:30→12:34)
[2017-07-25 08:31] VITALS: BP 152/73; PULSE 77; TEMP 36.8; O2SAT 99
[2017-07-25] MEDS ORDERED: VANCOMYCIN TROUGH SCH (09:30)
[2017-07-25] MEDS ORDERED: LISINOPRIL 10 MG TAB PO SCH (09:45)
[2017-07-25 10:01] LABS: BASO % 0.2 %; EOS % 1.7 %; HEMATOCRIT 33.9 % (42-52); IG% 1.2 %; LYMPH % 18.7 %; MEAN CELL VOLUME 88.1 fL (80-100); MEAN CORPUSCULAR HEMOGLOBIN 29.6 pg (25-34); MEAN CORPUSCULAR HGB CONC 33.6 g/dl (32-36); MEAN PLATELET VOLUME 9.7 fL (7.4-10.4); MONO % 7.3 %; NEUT % 70.9 %; PLATELET COUNT 133 K/uL (130-400); RED BLOOD COUNT 3.85 M/uL (4.7-6.1); WHITE BLOOD COUNT 5.89 K/uL (4.8-10.8)
[2017-07-25 10:02] LABS: BASO ABS # 0.01 K/uL (0-0.2); COMPLETE YES
[2017-07-25 10:29] LABS: CALCIUM 8.8 mg/dl (8.5-10.1); CREATININE 0.69 mg/dl (0.60-1.40); POTASSIUM 3.8 mmol/L (3.5-5.1)
[2017-07-25] MEDS ORDERED: LSN10 PO (10:42)
[2017-07-25] MEDS ORDERED: DOXY1TAB6 PO (10:42)
[2017-07-25] MEDS ORDERED: GLC5 PO (10:42)
[2017-07-25] MEDS ORDERED: NZRCR EXT (10:42)
[2017-07-25] MEDS ORDERED: CEFT1INJ57 IV (10:42)
[2017-07-25] MEDS ORDERED: GLC500 PO (10:42)
[2017-07-25] MEDS ORDERED: CEPH500C2 PO (10:42)
--- NOTE | 2017-07-25 10:47 | Discharge Instructions ---
Discharge Instructions Date of Service Jul 25, 2017. Admission Reason for Admission: Cellulitis Of Left Leg Discharge Discharge Diagnosis / Problem: cellulitis/ new onset diabetes / HTN Discharge Goals Goal(s): Decrease discomfort Activity Recommendations Activity Limitations: resume your previous activity Driving or Machine Use: no limitations . Instructions / Follow-Up Instructions / Follow-Up while you are on antibiotics you should take probiotics ( 2tabs 4 times a day) ( over the counter) you started lisinopril while in the hospital you need BMP in 2 weeks you need to start seeing family physician at least once every 6 months , first visit should be within a month Current Hospital Diet Patient's current hospital diet: Discharge Diet Recommended Diet: Low Sodium Diet (2gm Na), Diabetes Type 2 Diet Pending Studies Studies pending at discharge: no Laboratory Results Hemoglobin A1c Test 07/23/17 12:50 Range/Units Estimated Average Glucose 209 mg/dl Hemoglobin A1c 8.9 H 4.5-5.6 % Lipid Panel Test 07/24/17 05:57 Range/Units Triglycerides Level 202 H 0-150 mg/dl Cholesterol Level 140 0-200 mg/dl HDL Cholesterol 27 mg/dl Cholesterol/HDL Ratio 5.2 LDL Cholesterol, Calculated 73 mg/dl Medical Emergencies . Who to Call and When: Medical Emergencies: If at any time you feel your situation is an emergency, please call 911 immediately. . Non-Emergent Contact Non-Emergency issues call your: Primary Care Provider Call Non-Emergent contact if: you have a fever, your pain is not controlled . . "Provider Documentation" section prepared by Azeem Macedo. . VTE Core Measure Inpt VTE Proph given/why not?: Unfractionated heparin SQ, SCD's
[2017-07-25 14:36] VITALS: Ht 162.6 cm; Wt 116.8 kg
[2017-07-25 15:19] VITALS: BP 153/83; PULSE 85; TEMP 37.2; O2SAT 98
--- NOTE | 2017-07-25 15:27 | Discharge Summary ---
Discharge Summary Date of Service Jul 25, 2017. Discharge Summary Admission Date: Jul 23, 2017 at 15:11 Discharge Date: Jul 25, 2017 Discharge Disposition: Home Principal Diagnosis: left lower limb cellulitis Problems/Secondary Diagnoses: new onset diabetes type II HTN Obesity Medication Reconciliation New Medications: Ceftriaxone Sod (Rocephin) 1 Gm Inj 2 GM IV DAILY for 4 Days, VIAL start from 07/26 through 07/29 Cephalexin Monohydrate (Keflex) 500 Mg Cap 500 MG PO QID for 10 Days, #40 CAP start taking the medicine from 07/30 through 08/09 Doxycycline Hyclate (Doxycycline Hyclate) 100 Mg Tab 1 TAB PO BID for 14 Days, #28 TAB drink a full cup of water with the medicine Do not take iron supplements, multivitamins, calcium supplements, antacids, or laxatives within 2 hours before or after taking doxycycline. Avoid exposure to sunlight or tanning beds. Doxycycline can make you sunburn more easily. Wear protective clothing and use sunscreen (SPF 30 or higher) when you are outdoors Glipizide (Glipizide) 5 Mg Tab 5 MG PO QAM for 30 Days, #30 TAB 1 Refill Ketoconazole (Ketoconazole) 45 Appln/15 Gm Cr 1 APPLN EXT BID for 60 Days, #65 GM 3 Refills Lisinopril (Zestril) 10 Mg Tab 10 MG PO QAM for 30 Days, #30 TAB 1 Refill Metformin HCl (Metformin HCl) 500 Mg Tab 1000 MG PO BIDM for 30 Days, #60 TAB 1 Refill Discharge Exam Review of Systems: Constitutional: No fever, No chills, No sweats, No weight loss, No weakness , No fatigue, No problem reported Eyes: No worsening of vision, No eye pain, No redness, No discharge, No diplopia, No problem reported ENT: No hearing loss, No unusual epistaxis, No nasal symptoms, No sore throat, No tinnitus, No dental problems, No trouble swallowing, No problem reported Respiratory: No cough, No sputum, No wheezing, No shortness of breath, No dyspnea on exertion, No dyspnea at rest, No hemoptysis, No problem reported Cardiovascular: No chest pain, No orthopnea, No PND, No edema, No claudication, No palpitations, No problem reported Abdomen: No pain, No nausea, No vomiting, No diarrhea, No constipation, No GI bleeding, No problem reported Musculoskeletal: No joint pain, No muscle pain, No swelling, No calf pain, No problem reported Genitourinary - Male: No hematuria, No dysuria, No urinary frequency, No urinary urgency, No urinary hesitancy, No urinary retention, No urinary incontinence, No penile discharge, No lesions, No impotence, No problem reported Neurologic: No memory loss, No paralysis, No weakness, No numbness/tingling , No vertigo, No balance problems, No problem reported Psychiatric: No depression symptoms, No anhedonism, No anxiety, No insomnia , No substance abuse, No problem reported Endocrine: No fatigue, No excessive thirst, No excessive urination, No problem reported Hematologic / Lymphatic: No abnormal bleeding/bruising, No clotting problems , No swollen lymph nodes, No night sweats, No problem reported Integumentary: No rash, No itch, No new/changing skin lesions, No color change, No bleeding, No problem reported Physical Exam: General Appearance: no apparent distress, + obese Eyes: normal inspection, EOMI ENT: normal ENT inspection, hearing grossly normal Neck: supple Respiratory/Chest: chest non-tender, lungs clear, normal breath sounds, no respiratory distress, no accessory muscle use Cardiovascular: regular rate, rhythm, no edema, no gallop, no JVD, no murmur , normal peripheral pulses Abdomen / GI: normal bowel sounds, non tender, soft, no organomegaly, no pulsatile mass, normal rectal exam Extremities: + pertinent finding (left lower extremity has swelling and erythema) 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 He was found to have Left lower extremity cellulitis The bright red color suggestive of strep cellulitis, I increased ceftriaxone 2 g daily, he will continue on IV ceftriaxone for a total of 5 days then switch to by mouth for a total of 14 days, upon discharge he was giving a prescription of Keflex to be started after 4 days of discharge. He will be coming to the infusion center to receive his ceftriaxone 2 g IV daily for the next 4 days. Initially given vancomycin, although it's a nonpurulent, due to the extensive disease I will continue covering MRSA with oral doxycycline upon discharge Instructed to take probiotic while he is in antibiotic He was also found to have Tinea pedis Started Ketoconazole between toes for 8 weeks He was also found to have New onset/newly diagnosed diabetes, hemoglobin A1c 8.7 , started on metformin/glipizide, will do oral trial prior to going to insulin. health educator saw him and told him how to use the glucometer. He was also educated about symptoms and signs of hypoglycemia. Also found to have high blood pressure, started on lisinopril and instructed to get renal function and potassium levels in 2 weeks. for Morbid obesity with BMI of 44.2 Patient was consulted to lose weight Clinically suspected obstructive sleep apnea with witnessed episodes of apnea during sleep by his . Indicated about sleep apnea and instructed to get sleep study as an outpatient. He will be discharged today as he is worried about the hospital bed and he rather come back to infusion center for his antibiotic. Total Time Spent: Greater than 30 minutes This includes examination of the patient, discharge planning, medication reconciliation, and communication with other providers. Discharge Instructions Please refer to the electronic Patient Visit Report (Discharge Instructions) for additional information.
[2017-07-25 15:44] VITALS: BP 153/83; PULSE 85; TEMP 37.2; O2SAT 98
[2017-07-25 16:00] VITALS: O2SAT 98
[2017-07-25] MEDS ORDERED: CEFTRIAXONE SOD INJ 2,000 MG in DEXTROSE 5% 50ML 50 ML IV SCH (16:00)
[2017-07-26] MEDS ORDERED: GLIP-197 PO (13:01)
[2017-07-26] MEDS ORDERED: CEPH500C2 PO (13:01)
[2017-07-26] MEDS ORDERED: LISI10TA PO (13:01)
[2017-07-26] MEDS ORDERED: DOXY100C76 PO (13:01)
[2017-07-26] MEDS ORDERED: GLC/500 PO (13:01)
[2017-07-26] MEDS ORDERED: KETO200T PO (13:01)
[2017-07-26] MEDS ORDERED: ketoconazole (13:03)
== END 2017-07-25 16:55 | disposition home or self-care (01) | DRG 603 ==
LOC: C.EDB 12:00 → C.4E 15:11 → ENRESERV 15:38
PROVIDERS: ADMIT Hospitalist; ATTEND Internal Medicine
DX: L03.116 Cellulitis of left lower limb (principal); Z68.41 Body mass index [BMI] 40.0-44.9, adult; E11.65 Type 2 diabetes mellitus with hyperglycemia; I10 Essential (primary) hypertension; E66.01 Morbid (severe) obesity due to excess calories; G47.33 Obstructive sleep apnea (adult) (pediatric); D69.6 Thrombocytopenia, unspecified; B35.3 Tinea pedis; Z83.3 Family history of diabetes mellitus; Z79.84 Long term (current) use of oral hypoglycemic drugs; Z79.899 Other long term (current) drug therapy